=== PATIENT | male | born 1965 | race Caucasian/White ===

== ENCOUNTER 2024-07-06 18:32 | Emergency (ER) | payer OTHER, MEDICAID, SELFPAY ==
--- NOTE | ~2024-07-06 | XR_ITS ---
EXAM: XR ankle LT min 3V DATE: 07/06/2024 19:27 HISTORY: L ankle pain . COMPARISON: None available. FINDINGS: Normal mineralization. No fracture or dislocation. No lytic or blastic lesion. Mild scatte red degenerative change. Minimal plantar enthesopathy. No erosion or periosteal change. Soft tissues within normal limits. IMPRESSION: No acute osseous finding the left ankle. Reviewed, dictated and finalized at location K. [facility] [employer]IST
[2024-07-06 18:38] VITALS: BP 145/67; PULSE 78; RESP 15; TEMP 36.8; O2SAT 97
--- NOTE | 2024-07-06 18:57 | ED.EXTPRO ---
HPI - Extremity Problem General Chief complaint: Extremity Problem,Nontraumatic Stated complaint: Swollen left ankle Time Seen by Provider: 07/06/24 18:56 Source: patient Mode of arrival: ambulatory Limitations: no limitations History of Present Illness HPI Narrative: Patient presents with acute pain and swelling over the anterior aspect of his left ankle. He states he has a history of sciatica pain. He took gabapentin and ibuprofen for pain yesterday morning and this seemed to make it slightly better. Denies any known injury or fall. He denies a prior history of DVT or PE. He has a history of hypertension, myocardial infarction but no stroke or TIA. No prior history of gout or diabetes mellitus. His paresthesias along the dorsum of left foot. He notes that he is also having pain in his left knee as well. Related Data Allergies Allergy/AdvReac Type Severity Reaction Status Date / Time No Known Allergies Allergy Verified 07/06/24 21:00 [facility] [place] Past Medical History Medical History (Updated 07/07/24 @ 00:00 by Joann Benítez) Sciatic nerve pain Social History Social History (Updated 07/06/24 @ 19:52 by Afsaneh Jiménez MD) Additional living arrangements comments: Currently at [facility] Exam Narrative: GENERAL: Well-appearing, well-nourished, and in no acute distress. HEAD: Normocephalic, atraumatic. EYES: Non injected, non icteric ENT: Nares clear, no rhinorrhea or epistaxis. NECK: Supple. CHEST: Speaking in full sentences. No respiratory distress. HEART: Regular rate and rhythm. . ABDOMEN: Soft, nondistended. EXTREMITIES: Normal range of motion. Mild pedal edema. No calf TTP on the left and generally symmetric compared to right. Able to move ankle, no limitations in ROM. Pain with dorsiflexion but able to do so 5/5 strength as well as 5/5 with plantarflexion. Also able to demonstrate 5/5 strength with knee flexion/extension. SKIN: Warm, dry. Warm erythema nondescript in nature overlying dorsum of left foot and ankle. No TTP of ankle along anterior aspect or lateral or medial malleoli. No abrasions/lacerations. NEURO: No focal deficits. Alert and oriented x3. PSYCH: Normal mood and affect. Course Vital Signs Vital signs: Vital Signs Temperature 98.2 F 07/06/24 18:38 Pulse Rate 78 07/06/24 18:38 Respiratory Rate 15 07/06/24 18:38 Blood Pressure 145/67 H 07/06/24 18:38 Pulse Oximetry 97 07/06/24 18:38 Oxygen Delivery Room Air 07/06/24 18:38 Temperature 98.2 F 07/06/24 18:38 Pulse Rate 82 07/06/24 22:37 Respiratory Rate 16 07/06/24 22:37 Blood Pressure 138/80 07/06/24 22:37 Pulse Oximetry 100 07/06/24 22:37 Oxygen Delivery Room Air 07/06/24 18:38 MDM - Extremity (Nontraumatic) MDM Narrative Medical decision making narrative: Patient presents with left ankle pain particularly along the anterior aspect. No particular injury/trauma. Having some paresthesias along the dorsum. In the emergency department he is afebrile with vital signs notable for mild hypertension. Acute Gout Diagnostic Rule Risk stratifies for gout versus gout arthritis Male sex (No 0, Yes +2): 2 Previous patient reported arthritis attack (No 0, Yes +2):0 Onset within 1 day (No 0, Yes +0.5):0.5 Joint redness (No 0, Yes +1): 1 (though overlying anterior aspect) 1st metatarsophalangeal joint involvement (No 0, Yes +2.5):0 Hypertension or >/= 1 cardiac diseases - angina, [place], CHF, stroke/TIA, PVD) (No 0. Yes +1.5):1.5 Serum uric acid >5.8 Result : 5 points = 31.2% prevalence of gout in original study, thus equiovocal. Colchicine ordered. He has a leukocytosis and normocytic anemia. Dimer <1.0 so will not proceed with US study. Re-evaluated patient at bedside. He has not yet received colchicine. The foot no longer looks as erythematous nor particularly warm to the touch than the adjacent. Point of care ultrasound performed which does not demonstrate any cobblestoning thus this does not appear to be an infectious etiology such as cellulitis. Patient is observed ambulating to the bathroom on this extremity and does so with a stable gait. Upon reassessment he states the pain is much improved. There is no longer any erythema overlying the joint. unclear etiology for patient's symptoms. Will be discharged with prescriptions for [id number] acetaminophen and ibuprofen. Advised on follow-up and given return precautions. Patient verifies understanding. Differential Diagnosis Differential diagnosis: Likely gout, cellulitis, deep vein thrombosis of lower extremity and other (ankle sprain/strain) Lab Data 07/06/24 20:12 07/06/24 20:12 Labs: Lab Results 07/06/24 07/06/24 Range/Units 20:12 20:14 WBC 11.5 H (4.5-10.0) K/mm3 RBC 4.16 L (4.6-6.20) M/mm3 Hgb 12.8 L (14.0-18.0) g/dL Hct 38.5 L (42.0-52.0) % MCV 92.5 (80-100) fl MCH 30.8 (26-34) pg MCHC 33.2 (32-36) g/dl RDW 13.0 (11.5-14.5) % Plt Count 333 (150-375) k/mm3 MPV 9.5 (7.4-10.4) fl Immature Gran % (Auto) 0.6 H (0-0.5) % Neut % (Auto) 51.5 (45.5-73.1) % Lymph % (Auto) 29.6 (18.3-44.2) % Barren % (Auto) 11.7 H (2.6-8.5) % Eos % (Auto) 5.2 H (0-4.4) % Baso % (Auto) 1.4 H (0.2-1.2) % Lymph # (Auto) 3.41 H (0.9-3.2) K/mm3 Barren # (Auto) 1.4 H (0.1-0.6) K/mm3 Eos # (Auto) 0.6 H (0-0.3) K/mm3 Baso # (Auto) 0.2 H (0.0-0.1) K/mm3 Abs Immat Gran (auto) 0.07 H (0.00-0.031) K/mm3 Absolute Neuts (auto) 5.9 (1.3-6.7) K/mm3 Absolute Nucleated RBC 0.000 (0.0-0.012) K/mm3 Nucleated RBC % 0.0 (0.0-0.2) % PT 12.8 (11.1-14.7) Seconds INR 0.9 APTT 25.3 (22.3-36.8) Seconds D-Dimer 0.69 H (<0.48) ug/mL Sodium 137 (137-145) mmol/L Potassium 4.0 (3.4-5.0) mmol/L Chloride 99 (98-107) mmol/L Carbon Dioxide 30 (22-30) mmol/L Anion Gap 8 (4-12) mmol/L BUN 11 (9-20) mg/dL Creatinine 0.40 L (0.7-1.3) mg/dL Estim Creat Clear Calc 155 ml/min Estimated GFR > 60 (59 - ) Glucose 101 (65-110) mg/dL Lactic Acid 1.2 (0.7-2.0) mmol/L Uric Acid 3.6 (3.5-8.5) mg/dL Calcium 9.5 (8.4-10.2) mg/dL Magnesium 1.5 L (1.6-2.3) mg/dL Discharge Plan Discharge Clinical Impression: Ankle pain, left, Leukocytosis, Normocytic anemia Patient Disposition: Home, Self-Care Condition: Stable Instructions: Antibiotic Form, Leukocytosis (ED), Arthralgia (ED), Anemia (ED), P.R.I.C.E. Treatment (ED) Additional Instructions: Unclear cause of your pain. Your x-ray was negative. No evidence of infection such as a cellulitis that would warrant antibiotics. Neurovascularly intact on physical exam. You can safety take acetaminophen/Tylenol (maximum 4000mg/day) with NSAIDs (ibuprofen/Motrin) and these are also safe to take with your already prescribed gabapentin. Follow-up with your primary care physician is symptoms persist. If you do not have 1 the name of the doctors listed below. Return to the emergency department with any new or worsening symptoms. If this was a sprain, these medications are also safe to take and you can apply ice for 2 days followed by heat thereafter for 15-20 minutes at a time 4 times a day. Can also apply a compression bandage /Vladislav wrap if desired and advise R-I-C-E. Prescriptions: New acetaminophen 500 mg capsule 1,000 mg PO Q6H PRN (Reason: pain) Qty: 30 0RF ibuprofen 600 mg tablet 600 mg PO TID PRN (Reason: pain) Qty: 30 0RF Follow-up/Referrals: PHYSICIAN NOT ON STAFF,NONSTAFF [Primary Care Provider] - Emeka Singleton MD [Physician] - (Family practice) Stand Alone Forms: Work/School Release IP Time of Disposition: 22:25
[2024-07-06] MEDS: HYDROcodone/acetaminophen (*CRX) 5-325 MG TABLET 1 TAB PO (19:25)
[2024-07-06] MEDS: Please add drug allergy info to patient profile. 1 EACH XX (19:25)
[2024-07-06 20:19] LABS: Basophils Absolute Auto 0.2 K/mm3 (0.0-0.1); Basophils Percent Auto 1.4 % (0.2-1.2); Eosinophils Absolute Auto 0.6 K/mm3 (0-0.3); Eosinophils Percent Auto 5.2 % (0-4.4); Hematocrit 38.5 % (42.0-52.0); Hemoglobin 12.8 g/dL (14.0-18.0); Immature Granulocyte Absolute 0.07 K/mm3 (0.00-0.031); Immature Granulocyte Percent A 0.6 % (0-0.5); Lymphocytes Absolute Auto 3.41 K/mm3 (0.9-3.2); Lymphocytes Percent Auto 29.6 % (18.3-44.2); Mean Corpuscular HGB Conc 33.2 g/dl (32-36); Mean Corpuscular Hemoglobin 30.8 pg (26-34); Mean Corpuscular Volume 92.5 fl (80-100); Mean Platelet Volume 9.5 fl (7.4-10.4); Monocytes Absolute Auto 1.4 K/mm3 (0.1-0.6); Monocytes Percent Auto 11.7 % (2.6-8.5); Neutrophils Absolute Auto 5.9 K/mm3 (1.3-6.7); Neutrophils Percent Auto 51.5 % (45.5-73.1); Platelet Count Result 333 k/mm3 (150-375); Red Blood Count 4.16 M/mm3 (4.6-6.20); White Blood Count 11.5 K/mm3 (4.5-10.0)
[2024-07-06 20:31] LABS: Anion Gap 8 mmol/L (4-12); Blood Urea Nitrogen 11 mg/dL (9-20); Calcium 9.5 mg/dL (8.4-10.2); Carbon Dioxide 30 mmol/L (22-30); Chloride 99 mmol/L (98-107); Estimated CRCL calculation 155 ml/min; Estimated Glomerular Filt Rate > 60; Glucose 101 mg/dL (65-110); Magnesium 1.5 mg/dL (1.6-2.3); Sodium 137 mmol/L (137-145); Uric Acid 3.6 mg/dL (3.5-8.5)
[2024-07-06 20:31] LABS: Lactic Acid Reflex 1.2 mmol/L (0.7-2.0)
[2024-07-06 20:36] LABS: INR 0.9; Prothrombin Time 12.8 Seconds (11.1-14.7)
[2024-07-06 20:37] LABS: Partial Thromboplastin Time 25.3 Seconds (22.3-36.8)
[2024-07-06 21:03] LABS: D Dimer 0.69 ug/mL (<0.48)
[2024-07-06] MEDS: COLCHICINE 0.6 MG TABLET 1.2 MG PO (21:52)
[2024-07-06] MEDS: MAGNESIUM OXIDE 200 MG TABLET PO (21:52)
[2024-07-06 22:37] VITALS: BP 138/80; PULSE 82; RESP 16; O2SAT 100
== END 2024-07-06 22:38 | disposition home or self-care (01) ==
PROVIDERS: Emergency Provider Student in an Organized Health Care Education/Training Program
DX: M25.572 Pain in left ankle and joints of left foot (principal); D72.829 Elevated white blood cell count, unspecified; D64.9 Anemia, unspecified; I10 Essential (primary) hypertension; I25.2 Old myocardial infarction
CPT/HCPCS: 36415; 73610; 80048; 83605; 83735; 84550; 85025; 85380; 85610; 85730; 99283; A9270